=== PATIENT | female | born 1990 | race Caucasian/White ===

== ENCOUNTER 2020-01-24 15:57 | Emergency (ER) | payer OTHER ==
--- NOTE | 2020-01-24 16:17 | ED Physician Documentation ---
History of Present Illness - Stated complaint Stated Complaint: FEVER,BACK PAIN,BODY TINGLING - Chief complaint Chief Complaint: Abd Pain - History obtained from History obtained from: Patient (Recently healthy 29-year-old woman became sick today with a right-sided backache and fever to 103 and chills. No respiratory complaints. No urinary complaints.) Review of Systems Constitutional: reports: Fever, Chills Nose: denies: Rhinorrhea / runny nose Throat: denies: Sore throat Respiratory: denies: Dyspnea, Cough GI: denies: Abdominal Pain, Nausea, Vomiting, Diarrhea : denies: Dysuria, Frequency PD PAST MEDICAL HISTORY - Past Medical History Cardiovascular: None Respiratory: None Endocrine/Autoimmune: None - Past Surgical History Past Surgical History: Yes - Present Medications Home Medications: Ambulatory Orders Medication Instructions Recorded Confirmed Famotidine 20 mg PO DAILY #30 tablet 03/05/16 Ondansetron Odt [Zofran] 4 mg TL Q6H PRN #15 tablet 03/05/16 Tramadol HCl 50 mg PO Q6H PRN #20 tablet 03/05/16 - Allergies Allergies/Adverse Reactions: Allergies Allergy/AdvReac Type Severity Reaction Status Date / Time No Known Drug Allergies Allergy Verified 01/24/20 16:05 - Social History Does the pt smoke?: No Smoking Status: Never smoker Does the pt drink ETOH?: Yes Does the pt have substance abuse?: No - Immunizations Immunizations are current?: Yes PD ED PE NORMAL - Vitals Vital signs reviewed: Yes - General General: Alert and oriented X 3, No acute distress - Abdomen Abdomen: Normal bowel sounds, Soft, Non tender - Back Back: No CVA TTP - Derm Derm: No rash - Neuro Neuro: Alert and oriented X 3, Normal speech Results - Vitals Vitals: Vital Signs - 24 hr 01/24/20 01/24/20 16:01 16:26 Temperature 36.8 C 37.2 C Heart Rate 82 77 Respiratory 16 16 Rate Blood Pressure 123/77 106/70 O2 Saturation 100 99 Oxygen O2 Source Room air - Labs Labs: Laboratory Tests 01/24/20 16:10 Urine Color STRAW Urine Clarity CLEAR Urine pH 6.5 Ur Specific [place] <=1.005 Urine Protein NEGATIVE Urine Glucose (UA) NEGATIVE Urine Ketones NEGATIVE Urine Occult Blood NEGATIVE Urine Nitrite NEGATIVE Urine Bilirubin NEGATIVE Urine Urobilinogen 0.2 (NORMAL) Ur Leukocyte Esterase NEGATIVE Ur Microscopic Review NOT INDICATED Urine Culture Comments NOT INDICATED Urine HCG, Qual NEGATIVE Departure - Departure Disposition: 01 Home, Self Care Clinical Impression: Fever Qualifiers: Fever type: unspecified Qualified Code(s): R50.9 - Fever, unspecified Condition: Good Record reviewed to determine appropriate education?: Yes Instructions: ED Fever Unconf Cause Comments: You have a Covid test pending. You need to self quarantine until the result is done and negative. Do not leave your house. Do not get near anybody. The results should be done in 48 to 72 hours. We will call with a positive result, the fastest way to get a negative result for confirmation though is to go to the hospital website at [email or web address], click on the my [employer] tab and sign up for the patient portal. If any friends or family get sick and would like to have a Covid test done, but do not have signs or symptoms that would necessitate being hospitalized, we encourage testing through our coronavirus swabbing station, call [phone] to schedule an appointment. Forms: Activity restrictions
[2020-01-24 16:21] LABS: BILIRUBIN,URINE NEGATIVE (NEGATIVE); GLUCOSE, URINE (UA) NEGATIVE (NEGATIVE); KETONES,URINE (UA) NEGATIVE (NEGATIVE); LEUKOCYTE ESTERASE, URINE NEGATIVE (NEGATIVE); NITRITE,URINE NEGATIVE (NEGATIVE); OCCULT BLOOD,URINE NEGATIVE (NEGATIVE); PH,URINE 6.5 PH (5.0-7.5); PROTEIN,URINE NEGATIVE (NEGATIVE); UROBILINOGEN,URINE 0.2 (NORMAL) E.U./dL (NORMAL)
[2020-01-24 16:23] LABS: CLARITY,URINE CLEAR (CLEAR); HCG UR QUAL NEGATIVE
[2020-01-24 16:29] VITALS: BP 106/70
== END 2020-01-24 17:04 | disposition home or self-care (01) ==
LOC: ED 15:57
DX: R50.9 Fever, unspecified (principal); Z20.828 Contact with and (suspected) exposure to other viral communicable diseases
CPT/HCPCS: 81001; 81003; 81025; 87086; 99283

== ENCOUNTER 2021-04-23 22:28 | Emergency (ER) | payer OTHER ==
[2021-04-23 22:48] LABS: BASOPHILS % (AUTO) 0.2 %; EOSINOPHILS # (AUTO) 0.1 10^3/uL (0.0-0.7); EOSINOPHILS % (AUTO) 0.6 %; HCT - HEMATOCRIT 39.9 % (37.0-47.0); HGB - HEMOGLOBIN 12.7 g/dL (12.0-16.0); LYMPHOCYTES # (AUTO) 3.1 10^3/uL (1.5-3.5); LYMPHOCYTES % (AUTO) 35.3 %; MEAN CORPUSCULAR HEMOGLOBIN 29.6 pg (27.0-31.0); MEAN CORPUSCULAR HGB CONC 31.8 g/dL (32.0-36.0); MEAN PLATELET VOLUME 8.6 fL (7.9-10.8); MONOCYTES # (AUTO) 0.5 10^3/uL (0.0-1.0); MONOCYTES % (AUTO) 5.8 %; NEUTROPHILS # (AUTO) 5.1 10^3/uL (1.5-6.6); NEUTROPHILS % (AUTO) 57.9 %; PLT - PLATELET COUNT 366 10^3/uL (130-450); RED BLOOD COUNT 4.29 10^6/uL (4.20-5.40); RED CELL DISTRIBUTION WIDTH 13.2 % (12.0-15.0); WHITE BLOOD COUNT 8.8 x10^3/uL (4.8-10.8)
[2021-04-23 23:02] LABS: ALBUMIN 4.2 g/dL (3.2-5.5); ALBUMIN/GLOBULIN RATIO 1.4 (1.0-2.2); BILIRUBIN,TOTAL 0.4 mg/dL (0.2-1.0); CALCIUM 9.3 mg/dL (8.5-10.3); CREATININE 0.8 mg/dL (0.4-1.0); POTASSIUM 3.8 mmol/L (3.5-5.0); TOTAL PROTEIN 7.3 g/dL (6.7-8.2)
--- NOTE | 2021-04-24 00:30 | ED Physician Documentation ---
PD HPI ABD PAIN - Stated complaint Stated Complaint: ABD PX - Chief complaint Chief Complaint: Abd Pain - History obtained from History obtained from: Patient - History of Present Illness Timing - onset: How many weeks ago (2 weeks) Timing - details: Gradual onset, Waxing and waning Pain level now: 4 Quality: Cramping Location: All over / everywhere Improved by: Other (no ameliorating factors) Worsened by: Eating Associated symptoms: Nausea, Vomiting (x1), Diarrhea. No: Fever Similar symptoms before: Has not had sx before Recently seen: Not recently seen - Additional information Additional information: no recent antibIotics, no recent travel, denies fever or blood im stool. Review of Systems Constitutional: reports: Reviewed and negative Cardiac: reports: Reviewed and negative GI: reports: Abdominal Pain, Nausea, Vomiting, Diarrhea. 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 : None HEENT: None Psych: None Musculoskeletal: None Derm: None - Past Surgical History Past Surgical History: No - Present Medications Home Medications: Ambulatory Orders Medication Instructions Recorded Confirmed Promethazine [Phenergan] mg PO DAILY 04/23/21 - Allergies Allergies/Adverse Reactions: Allergies Allergy/AdvReac Type Severity Reaction Status Date / Time No Known Drug Allergies Allergy Verified 04/23/21 22:31 - Social History Does the pt smoke?: No Smoking Status: Never smoker Does the pt drink ETOH?: Yes Does the pt have substance abuse?: No - Immunizations Immunizations are current?: Yes - POLST Patient has POLST: No PD ED PE NORMAL - Vitals Vital signs reviewed: Yes - General General: Alert and oriented X 3, No acute distress, Well developed/nourished - Cardiac Cardiac: RRR, No murmur - Respiratory Respiratory: No respiratory distress, Clear bilaterally - Abdomen Abdomen: Soft, Non distended - Back Back: No CVA TTP PD ED PE EXPANDED - Abdomen Abdomen: Tender to palpation, RLQ. No: Guarding Results - Vitals Vitals: Oxygen O2 Source Room air - Labs Labs: Laboratory Tests 04/23/21 04/23/21 04/24/21 22:44 22:44 00:50 WBC 8.8 RBC 4.29 Hgb 12.7 Hct 39.9 MCV 93.0 MCH 29.6 MCHC 31.8 L RDW 13.2 Plt Count 366 MPV 8.6 Neut # (Auto) 5.1 Lymph # (Auto) 3.1 [place] # (Auto) 0.5 Eos # (Auto) 0.1 Baso # (Auto) 0.0 Absolute Nucleated RBC 0.00 Nucleated RBC % 0.0 Sodium 141 Potassium 3.8 Chloride 104 Carbon Dioxide 27 Anion Gap 10.0 BUN 10 Creatinine 0.8 Estimated GFR (MDRD) 85 L Glucose 93 Calcium 9.3 Total Bilirubin 0.4 AST 13 ALT 18 Alkaline Phosphatase 75 Total Protein 7.3 Albumin 4.2 Globulin 3.1 Albumin/Globulin Ratio 1.4 Lipase 28 Urine Color YELLOW Urine Clarity CLEAR Urine pH 8.0 H Ur Specific [place] 1.020 Urine Protein NEGATIVE Urine Glucose (UA) NEGATIVE Urine Ketones NEGATIVE Urine Occult Blood NEGATIVE Urine Nitrite NEGATIVE Urine Bilirubin NEGATIVE Urine Urobilinogen 0.2 (NORMAL) Ur Leukocyte Esterase NEGATIVE Ur Microscopic Review NOT INDICATED Urine Culture Comments NOT INDICATED - Rads (name of study) CT A/P with IV contrast Radiology: Prelim report reviewed, See rad report PD MEDICAL DECISION MAKING - ED course Complexity details: reviewed results, re-evaluated patient, considered differential, d/w patient ED course: unremarkable CT A/P (left ovarian cyst interpreted as likely dominant follicle). unremarkable cbc, er abd panel, as well. unable to provide stool sample during ED stay. suspect enteritis although no inflamation on CT noted. results reviewed with patient , instructed to return if worse, f/u with pmd for reevaluation Departure - Departure Disposition: 01 Home, Self Care Clinical Impression: Diarrhea, Abdominal pain Condition: Good Instructions: ED Abdominal Pain Female Non-Specific Abdominal Pain Follow-Up: IVÁN BEY MD [Primary Care Provider] - Comments: Your tests tonight (urinalysis, blood tests, CT scan) are unremarkable; although a right ovarian cyst was shown on the CT scan, I suspect this is an incidental finding based on its size (it is a small cyst) and the radiologist's description (its appearance is most consistent with a type of cyst that is normal during a menstrual cycle). Follow up with your primary care provider for reevaluation. You can try immodium for diarrhea/cramping abdominal pain; this is an [id number] medication and thus no prescription is necessary. Discharge Date/Time: 04/24/21 03:07
[2021-04-24 01:01] LABS: BILIRUBIN,URINE NEGATIVE (NEGATIVE); GLUCOSE, URINE (UA) NEGATIVE (NEGATIVE); KETONES,URINE (UA) NEGATIVE (NEGATIVE); LEUKOCYTE ESTERASE, URINE NEGATIVE (NEGATIVE); NITRITE,URINE NEGATIVE (NEGATIVE); OCCULT BLOOD,URINE NEGATIVE (NEGATIVE); PROTEIN,URINE NEGATIVE (NEGATIVE); UROBILINOGEN,URINE 0.2 (NORMAL) E.U./dL (NORMAL)
[2021-04-24 01:02] LABS: CLARITY,URINE CLEAR (CLEAR)
[2021-04-24] MEDS ORDERED: IOVERSOL 320 100 ML VIAL IVP ONE ×2 (01:28→01:45)
[2021-04-24 01:42] VITALS: BP 115/66
--- NOTE | 2021-04-24 02:17 | CT Report ---
PROCEDURE: Abdomen/Pelvis W INDICATIONS: RLQ pain/tenderness CONTRAST: IV CONTRAST: Optiray 320. TECHNIQUE: After the administration of intravenous contrast, 5 mm thick sections acquired from the diaphragms to the symphysis. 5 mm thick coronal and sagittal reformats were acquired. For radiation dose reducti on, the following was used: automated exposure control, adjustment of mA and/or kV according to kandace ent size. COMPARISON: None. FINDINGS: Image quality: Excellent. ABDOMEN: Lung bases: Lung bases are clear. Heart size is normal. Solid organs: Liver and spleen are normal in size and enhancement. Gallbladder is normal. Biliary system is non dilated. Pancreas enhances normally. No adrenal nodules. Kidneys demonstrate normal size and enhancement, without hydronephrosis. Peritoneum and bowel: Bowel loops demonstrate normal wall thickness and caliber. Normal appendix. N o free fluid or air. Nodes and vessels: No retroperitoneal or mesenteric adenopathy by size criteria. Aorta and inferior vena cava are normal in size. Miscellaneous: No ventral hernias. PELVIS: Genitourinary: Bladder wall thickness is normal. Uterus and ovaries are normal. There is a 2.7 cm c yst in the right ovary, likely a dominant ovarian follicle. Miscellaneous: No inguinal hernias or adenopathy. Bones: No suspicious bony lesions. No vertebral body compression fractures. IMPRESSION: 1. No acute abnormalities in abdomen or pelvis. 2. Normal appendix. 3. A 2.7 cm cyst in the right ovary, likely a dominant ovarian follicle. Reviewed by: Hansa Dobbs MD on 04/24/2021 2:15 AM PST Approved by: Hansa Dobbs MD on 04/24/2021 2:15 AM PST Station ID: [id number]
[2021-04-24] MEDS ORDERED: LOPERAMIDE 2 MG CAPSULE PO STA (02:56)
== END 2021-04-24 03:07 | disposition home or self-care (01) ==
LOC: ED 22:28
DX: R10.9 Unspecified abdominal pain (principal); R19.7 Diarrhea, unspecified
CPT/HCPCS: 36415; 74177; 80053; 81003; 83690; 85025; 99282; 99284; A9270; Q9967; 81001; 87086

== ENCOUNTER 2021-09-26 10:52 | Emergency (ER) | payer OTHER ==
[2021-09-26 11:02] VITALS: BP 126/74
[2021-09-26] MEDS ORDERED: methocarbamoL 500 MG TABLET PO STA (11:42)
[2021-09-26] MEDS ORDERED: DEXAMETHASONE 10 MG/ML VIAL IVP STA (11:42)
[2021-09-26] MEDS ORDERED: KETOROLAC 15 MG/ML VIAL IVP STA (11:42)
[2021-09-26] MEDS ORDERED: ACETAMINOPHEN 325 MG TABLET PO STA (11:42)
[2021-09-26] MEDS ORDERED: LIDOCAINE PATCH 5% TOP STA (11:42)
--- NOTE | 2021-09-26 11:43 | ED Physician Documentation ---
PD HPI BACK PAIN - Stated complaint Stated Complaint: LOW BACK PX - Chief complaint Chief Complaint: Back Pain - History obtained from History obtained from: Patient - History of Present Illness Timing - onset: Yesterday - Additional information Additional information: 30-year-old female with no reported past medical history presents for lumbar back pain. Patient states that she was seen at [facility] yesterday, given a Toradol shot and cyclobenzaprine, however these did not relieve her pain. She was discharged with a prescription for these medications, but did not fill them. She states that her pain continued and she is here today for repeat evaluation. Pain began yesterday after she was walking to the couch. She states she felt a sharp pain on either side of her back and it has been constant since onset. Pain is sharp, constant, does not radiate, no associated difficulties walking, denies numbness, weakness, tingling, denies saddle anesthesia, denies bowel or bladder incontinence. No other medications taken at home for symptoms. Review of Systems Ten Systems: 10 systems reviewed and negative Constitutional: denies: Fever, Chills Cardiac: denies: Chest pain / pressure, Palpitations Respiratory: denies: Dyspnea, Cough, Wheezing : denies: Dysuria, Frequency, Hesitancy, Unable to Void Musculoskeletal: reports: Back pain. 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 HEENT: None Psych: None Musculoskeletal: None Derm: None - Past Surgical History Past Surgical History: No - Present Medications Home Medications: Ambulatory Orders Medication Instructions Recorded Confirmed Promethazine [Phenergan] mg PO DAILY 04/23/21 Lidocaine Patch 5% [Lidoderm Patch] 1 each TOP DAILY PRN #5 patch 09/26/21 - Allergies Allergies/Adverse Reactions: Allergies Allergy/AdvReac Type Severity Reaction Status Date / Time No Known Drug Allergies Allergy Verified 09/26/21 11:02 - Social History Does the pt smoke?: No Smoking Status: Never smoker Does the pt drink ETOH?: Yes Does the pt have substance abuse?: No - Immunizations Immunizations are current?: Yes - POLST Patient has POLST: No PD ED PE NORMAL - Vitals Vital signs reviewed: Yes - General General: Alert and oriented X 3, No acute distress, Well developed/nourished - HEENT HEENT: Atraumatic, PERRL, EOMI, Ears normal - Neck Neck: Supple, no meningeal sign, No bony TTP, No adenopathy, Thyroid normal - Cardiac Cardiac: RRR, No gallop, No rub, Strong equal pulses - Respiratory Respiratory: No respiratory distress, Clear bilaterally - Abdomen Abdomen: Soft, Non tender, Non distended, No organomegaly - Female Female : Deferred - Back Back: No CVA TTP, No spinal TTP, Other (no midline tenderness) - Derm Derm: Normal color, Warm and dry, No rash - Extremities Extremities: No deformity, No tenderness to palpate, Normal ROM s pain - Neuro Neuro: Alert and oriented X 3, conservation policy analyst 2-12 intact, No motor deficit, No sensory deficit, Normal speech - Psych Psych: Normal mood, Normal affect Results - Vitals Vitals: Vital Signs - 24 hr 09/26/21 10:57 Temperature 36.5 C Heart Rate 123 H Respiratory 16 Rate Blood Pressure 126/74 O2 Saturation 100 Oxygen O2 Source Room air PD MEDICAL DECISION MAKING - ED course ED course: Generalized lumbar back pain. No midline tenderness, no signs or symptoms of cauda equina. Patient counseled on multimodal pain therapy, given several doses of medications in the department. Counseled to fill her prescriptions as initially prescribed, will additionally add on lidocaine patches. Discharged home in stable condition. PCP follow-up advised. Departure - Departure Disposition: 01 Home, Self Care Clinical Impression: Back pain Qualifiers: Back pain location: low back pain Chronicity: acute Back pain laterality: bilateral Sciatica presence: without sciatica Qualified Code(s): M54.50 - Low back pain, unspecified Instructions: Back How Works, Back Pain Relieve, ANTI-INFLAMMATORY, General Prescriptions: Lidocaine Patch 5% [Lidoderm Patch] 1 each TOP DAILY PRN #5 patch PRN Reason: Pain Discharge Date/Time: 09/26/21 13:25
--- NOTE | 2021-09-26 12:35 | XRAY Report ---
PROCEDURE: Lumbar Spine 2 View INDICATIONS: LUMBAR BACK PAIN TECHNIQUE: 2 views of the lumbar spine were acquired. COMPARISON: None. FINDINGS: Bones: 5 [id number]-[id number] vertebrae are present. There is normal bony alignment. No vertebral body compression fractures. No suspicious bony lesions. Soft tissues: Overlying bowel gas pattern is normal. No suspicious soft tissue calcifications. IMPRESSION: No acute compression fracture or spondylolisthesis in lumbar spine. No gross paraspinous soft tissue abnormality. Reviewed by: Melvin Saenz MD on 09/26/2021 12:34 PM PDT Approved by: Melvin Saenz MD on 09/26/2021 12:34 PM PDT Station ID: [id number]
== END 2021-09-26 13:25 | disposition home or self-care (01) ==
LOC: ED 10:52
DX: M54.50 Low back pain, unspecified (principal)
CPT/HCPCS: 72100; 96374; 96375; 99283; 99284; A9270

== ENCOUNTER 2021-11-06 08:00 | Outpatient (CLI) | payer OTHER ==
[2021-11-06 18:47] LABS: HCG,QUALITATIVE BLOOD NEGATIVE
== END 2021-11-06 23:59 | disposition home or self-care (01) ==
LOC: LAB.N 08:00
PROVIDERS: ATTEND Nurse Practitioner
DX: R10.2 Pelvic and perineal pain (principal)
CPT/HCPCS: 36415; 84703

== ENCOUNTER 2022-02-09 07:39 | Outpatient (CLI) | payer OTHER ==
[~2022-02-09 07:39] MED LIST: GADOBUTROL 7.5 MMOL/7.5 ML VIAL ONE
[2022-02-09] MEDS ORDERED: GADOBUTROL 7.5 MMOL/7.5 ML VIAL IVP ONE (10:48)
[2022-02-14] MEDS ORDERED: GADOBUTROL 7.5 MMOL/7.5 ML VIAL ONE (12:19)
[2022-02-14] MEDS ORDERED: GADOBUTROL 7.5 MMOL/7.5 ML VIAL IVP ONE (18:43)
--- NOTE | 2022-02-15 08:36 | MRI Report ---
PROCEDURE: ABDOMEN W/WO INDICATIONS: Abdominal pain. CONTRAST: 6.1 mL Gadavist TECHNIQUE: Coronal ultra fast SE, axial 2D spoiled GE in- and [id number]; axial breath-hold T2 fast SE. Dynam ic axial ultra fast GE during the administration of contrast; post-contrast coronal ultra fast GE or 2D spoiled GE with fat saturation from the hepatic dome to the iliac crests. Optional diffusion weig hted imaging and ADC may be performed. COMPARISON: CT abdomen pelvis 04/24/2021. FINDINGS: Image quality: Adequate. Lung bases: No basal pleural effusions. Solid organs: Liver and spleen are normal in size and enhancement. Gallbladder is unremarkable. Bi liary system is non dilated. Pancreas is normal in morphology. No adrenal nodules. Both kidneys de monstrate normal size and enhancement, without hydronephrosis. Nodes and vessels: No retroperitoneal or mesenteric adenopathy by size criteria. Aorta and inferior vena cava are normal in size. Bowel and peritoneum: Visualized large and small bowel is non-dilated. No substantial free fluid. IMPRESSION: No acute abnormality identified within the abdomen. Reviewed by: Jassi Holcomb MD on 02/15/2022 8:35 AM PST Approved by: Jassi Holcomb MD on 02/15/2022 8:35 AM PST Station ID: [id number]
== END 2022-02-09 07:40 | disposition home or self-care (01) ==
LOC: DI 07:39
PROVIDERS: ATTEND Student in an Organized Health Care Education/Training Program
DX: R10.9 Unspecified abdominal pain (principal)
CPT/HCPCS: 74183; A9585

== ENCOUNTER 2023-09-02 15:36 | Emergency (ER) | payer OTHER ==
[2023-09-02 16:09] VITALS: BP 105/52; O2SAT 100
[2023-09-02 16:33] LABS: BASOPHILS % (AUTO) 0.3 %; EOSINOPHILS # (AUTO) 0.1 10^3/uL (0.0-0.7); EOSINOPHILS % (AUTO) 0.8 %; HCT - HEMATOCRIT 38.5 % (37.0-47.0); HGB - HEMOGLOBIN 12.2 g/dL (12.0-16.0); LYMPHOCYTES # (AUTO) 2.6 10^3/uL (1.5-3.5); LYMPHOCYTES % (AUTO) 29.8 %; MEAN CORPUSCULAR HGB CONC 31.7 g/dL (32.0-36.0); MEAN CORPUSCULAR VOLUME 88.5 fL (81.0-99.0); MEAN PLATELET VOLUME 8.8 fL (7.9-10.8); MONOCYTES # (AUTO) 0.7 10^3/uL (0.0-1.0); MONOCYTES % (AUTO) 7.8 %; NEUTROPHILS # (AUTO) 5.3 10^3/uL (1.5-6.6); NEUTROPHILS % (AUTO) 61.1 %; PLT - PLATELET COUNT 309 10^3/uL (130-450); RED BLOOD COUNT 4.35 10^6/uL (4.20-5.40); RED CELL DISTRIBUTION WIDTH 13.2 % (12.0-15.0); WHITE BLOOD COUNT 8.6 x10^3/uL (4.8-10.8)
[2023-09-02 17:01] LABS: ALBUMIN 4.4 g/dL (3.2-5.5); ALBUMIN/GLOBULIN RATIO 1.5 (1.0-2.2); BILIRUBIN,TOTAL 0.4 mg/dL (0.2-1.0); CALCIUM 9.6 mg/dL (8.5-10.3); CREATININE 0.9 mg/dL (0.6-1.3); TOTAL PROTEIN 7.3 g/dL (6.4-8.9)
[2023-09-02 17:09] LABS: BILIRUBIN,URINE NEGATIVE (NEGATIVE); GLUCOSE, URINE (UA) NEGATIVE (NEGATIVE); KETONES,URINE (UA) NEGATIVE (NEGATIVE); LEUKOCYTE ESTERASE, URINE TRACE (NEGATIVE); NITRITE,URINE NEGATIVE (NEGATIVE); OCCULT BLOOD,URINE NEGATIVE (NEGATIVE); PROTEIN,URINE NEGATIVE (NEGATIVE); UROBILINOGEN,URINE 0.2 (NORMAL) E.U./dL (NORMAL)
[2023-09-02 17:10] LABS: CLARITY,URINE HAZY (CLEAR)
[2023-09-02 17:11] LABS: HCG UR QUAL NEGATIVE
[2023-09-02 17:16] LABS: BACTERIA,URINE Many /HPF (None Seen); RBC,URINE 0-5 /HPF (0-5); SQUAMOUS EPITHELIAL CELL,UR MANY Squamous (<= Few)
--- NOTE | 2023-09-02 17:16 | ED Physician Documentation ---
PD HPI ABD PAIN - Stated complaint Stated Complaint: ABD PX - Chief complaint Chief Complaint: Abd Pain - History obtained from History obtained from: Patient - Additional information Additional information: 32-year-old woman who is otherwise healthy with no possibility of developed left lower quadrant pain radiating to the left flank and down the left leg starting last night. She is currently midcycle. She denies vaginal bleeding or urinary complaints. She chronically has frequent stools but that is not new. 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 : None HEENT: None Psych: Depression, Anxiety, Post traumatic stress disorder Musculoskeletal: None Derm: None - Past Surgical History Past Surgical History: Yes General: Colonoscopy - Present Medications Home Medications: Ambulatory Orders Medication Instructions Recorded Confirmed Galcanezumab-Gnlm [Emgality] 120 mg SQ Q30D 09/02/23 09/02/23 HYDROcod/ACETAM 5/325 [[place] 5/325] 1 - 2 tab PO Q6H PRN #15 tablet 09/02/23 Ibuprofen [Motrin] 800 mg PO Q8H PRN #30 tablet 09/02/23 Pantoprazole [Protonix] 40 mg PO DAILY 09/02/23 09/02/23 Propranolol HCl 20 mg PO BID 09/02/23 09/02/23 Rizatriptan Benzoate [Rizatriptan] 10 mg PO DAILY PRN 09/02/23 09/02/23 Venlafaxine HCl [Effexor Xr] 150 mg PO DAILY 09/02/23 09/02/23 - Allergies Allergies/Adverse Reactions: Allergies Allergy/AdvReac Type Severity Reaction Status Date / Time No Known Drug Allergies Allergy Verified 09/02/23 15:56 - Social History Does the pt smoke?: No Smoking Status: Never smoker Does the pt drink ETOH?: Yes Does the pt have substance abuse?: No - Immunizations Immunizations are current?: Yes - POLST Patient has POLST: No PD ED PE NORMAL - Vitals Vital signs reviewed: Yes - General General: Alert and oriented X 3, No acute distress - Abdomen Abdomen: Normal bowel sounds, Soft, Non tender - Neuro Neuro: Alert and oriented X 3 Results - Vitals Vitals: Vital Signs - 24 hr 06/25/24 15:57 Temperature 36.6 C Heart Rate 68 Respiratory 16 Rate Blood Pressure 105/52 L O2 Saturation 100 Oxygen O2 Source Room air - Labs Labs: Laboratory Tests 09/02/23 09/02/23 09/02/23 16:20 16:20 16:20 WBC 8.6 RBC 4.35 Hgb 12.2 Hct 38.5 MCV 88.5 MCH 28.0 MCHC 31.7 L RDW 13.2 Plt Count 309 MPV 8.8 Neut # (Auto) 5.3 Lymph # (Auto) 2.6 [place] # (Auto) 0.7 Eos # (Auto) 0.1 Baso # (Auto) 0.0 Absolute Nucleated RBC 0.00 Nucleated RBC % 0.0 Sodium 135 Potassium 4.0 Chloride 104 Carbon Dioxide 26 Anion Gap 5.0 L BUN 15 Creatinine 0.9 Estimated GFR (MDRD) 74 L Glucose 95 Calcium 9.6 Total Bilirubin 0.4 AST 11 ALT 16 Alkaline Phosphatase 99 Total Protein 7.3 Albumin 4.4 Globulin 2.9 Albumin/Globulin Ratio 1.5 Lipase 14 Urine Color YELLOW Urine Clarity HAZY Urine pH 6.0 Ur Specific [place] 1.025 Urine Protein NEGATIVE Urine Glucose (UA) NEGATIVE Urine Ketones NEGATIVE Urine Occult Blood NEGATIVE Urine Nitrite NEGATIVE Urine Bilirubin NEGATIVE Urine Urobilinogen 0.2 (NORMAL) Ur Leukocyte Esterase TRACE H Urine RBC 0-5 Urine WBC 6-10 H Ur Squamous Epith Cells MANY Squamous H Urine Bacteria Many H Ur Microscopic Review INDICATED Urine Culture Comments NOT INDICATED Urine HCG, Qual NEGATIVE - Rads (name of study) Pelvic ultrasound demonstrating 1.9 cm ovarian cyst Relevant Findings:: Final report received, EMP independent interpretation of test PD Medical Decision Making - ED course ED course: She is perfectly midcycle and has pelvic pain radiating to the back and leg. This is strongly suggestive of ovarian cyst which is seen on pelvic ultrasound. She was feeling much better after hydrocodone and ibuprofen. CBC, CMP are unremarkable. Urinalysis is contaminated with squamous cells with negative test. I see no need to repeat it given lack of urinary symptoms. Departure - Departure Disposition: 01 Home, Self Care Clinical Impression: Ovarian cyst Condition: Good Record reviewed to determine appropriate education?: Yes Instructions: ED Cyst Ovarian Follow-Up: [facility] [Provider Group] Prescriptions: Ibuprofen [Motrin] 800 mg PO Q8H PRN #30 tablet PRN Reason: PAIN &/OR FEVER HYDROcod/ACETAM 5/325 [[place] 5/325] 1 - 2 tab PO Q6H PRN #15 tablet PRN Reason: Pain Comments: I sent your prescriptions electronically to the [facility] in [place]. You have a small cyst on your left ovary, I suspect pain will go away over the next few days. Either way though you should follow-up with a living manager, see the number on this form for reevaluation and sometimes they like to do a repeat ultrasound to ensure that the cyst is resolved. Return for new or worsening symptoms. I am prescribing a short course of narcotic pain medication for you. These are potentially dangerous and addictive medications that should be used carefully. These medications may constipate you. Take an vcgd-ffu-pffpdxw stool softener (docusate) twice daily with plenty of water while taking these medications. If you go 24 hours without a bowel movement, take dkly-gax-bfjubhh miralax, per package instructions. Do not drink or drive while taking these medications. If you received narcotic or sedating medications while in the emergency department, do not drive for 24 hours. Store this medication in a safe, secure place and out of reach of children. It is a violation of federal law to give or sell this medication to another person or to use in a manner other than prescribed. The ED will not refill narcotic prescriptions, including prescriptions lost or stolen. To dispose of unwanted medications: 1. [facility] provides a drop box for medication in pill form only (no liquids) 8:00 am to 4:30 p.m. Friday-Friday in the lobby of the [facility], [address] [place] [address]. Empty pills into ziplock bag before disposal. Call [phone] for information. 2.[employer] is a free service available to all [facility] residents. Go to [email or web address] Note that many narcotic pain relievers also contain Tylenol/acetaminophen. Please ensure that your total dose of acetaminophen from all sources does not exceed 3 g (3000 mg) per day. Forms: PCP List Discharge Date/Time: 09/02/23 19:15
[2023-09-02] MEDS: IBUPROFEN 800 MG TABLET PO STA (17:25)
[2023-09-02] MEDS: HYDROcod/ACETAM 5/325 MG TABLET PO STA (17:26)
--- NOTE | 2023-09-02 19:46 | Ultrasound Report ---
PROCEDURE: Pelvic w/Transvag+Doppler Comp INDICATIONS: l pelvic pn TECHNIQUE: Real-time scanning was performed of the pelvic organs, with image documentation. Additional endovagi nal scanning was necessary due to incomplete visualization of the adnexal and endometrial structures by transabdominal scanning. Doppler interrogation was performed of the ovaries bilaterally. COMPARISON: None. FINDINGS: Uterus: Uterus is anteverted and normal in size at 7.4 x 3.1 x 4.5 cm. The myometrium is heterogene ous. The endometrium measures 13 mm in combined thickness. Ovaries: The right ovary measures 4.0 x 3.0 x 2.6 cm, with a calculated ovarian volume of 17 cc. Sim ple right ovarian cyst measures 3.0 x 2.2 x 2.3 cm. The left ovary measures 2.9 x 2.4 x 3.1 cm, with a calculated ovarian volume of 11.2 cc. Thick-walled left ovarian cyst measures 1.5 x 1.9 x 1.7 cm. A ppropriate blood flow to the ovaries with Doppler interrogation. Less than 12 follicles can be seen in each ovary. No adnexal masses are seen. No cystic lesions measuring greater than 3 cm. Other: No pathologic free abdominal or pelvic fluid. IMPRESSION: 1.No sonographic signs of ovarian torsion. 2.Left ovarian 1.9 cm cyst may be physiologic or hemorrhagic. Reviewed by: Jassi Gabriel MD on 09/02/2023 7:45 PM PDT Approved by: Jassi Gabriel MD on 09/02/2023 7:45 PM PDT Station ID: [id number]
== END 2023-09-02 19:15 | disposition home or self-care (01) ==
LOC: ED 15:36
DX: N83.202 Unspecified ovarian cyst, left side (principal); Z32.02 Encounter for pregnancy test, result negative
CPT/HCPCS: 36415; 76830; 76856; 80053; 81001; 81025; 83690; 85025; 93975; 99283; 99284; A9270; 81003; 87086